=== PATIENT | male | born 1985 | race African-American/Black ===

== ENCOUNTER 2019-02-15 14:23 | Emergency (ER) | payer SELFPAY ==
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
[2019-02-15] MEDS ORDERED: Ketorolac Tromethamine 60 MG/2 ML VIAL ONE (15:43)
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
== END 2019-02-15 16:00 | disposition home or self-care (01) ==
LOC: ERS 14:23
DX: S16.1XXA Strain of muscle, fascia and tendon at neck level, initial encounter (principal); Z71.6 Tobacco abuse counseling; F17.210 Nicotine dependence, cigarettes, uncomplicated; V43.62XA Car passenger injured in collision with other type car in traffic accident, initial encounter
CPT/HCPCS: 72125; 72128; 72131; 96372; 99406; J1885